=== PATIENT | female | born 1970 | race Caucasian/White ===

== ENCOUNTER → 2016-11-11 | Outpatient (CLI) | payer BC ==
--- NOTE | 2016-11-11 12:04 | RADIOLOGY REPORT PS360 ---
ANKLE-LT-3 VIEWS HISTORY: Posttraumatic pain FALL COMPARISON: None FINDINGS: No fracture or dislocation. No lytic or blastic change. There is normal mineralization.. The joint spaces are well-preserved. No significant degenerative/arthritic changes. No erosive changes evident. IMPRESSION: Negative ankle, no acute finding
--- NOTE | 2016-11-11 12:06 | RADIOLOGY REPORT PS360 ---
FOOT-LT-3 VIEWS HISTORY: Posttraumatic pain FALL COMPARISON: None FINDINGS: On the oblique view there is a faint lucency involving the base of the distal phalanx of the fifth toe suspicious for nondisplaced fracture. This involves the proximal articular surface. Please correlate as to patient's area of pain.. Minimal osteoarthritic change first metatarsophalangeal joint IMPRESSION: Nondisplaced fracture distal phalanx fifth digit
== END ==
LOC: RAD 11:05
DX: M79.672 Pain in left foot (principal); M25.572 Pain in left ankle and joints of left foot; W19.XXXA Unspecified fall, initial encounter